=== PATIENT | male | born 1955 | race African-American/Black ===

== ENCOUNTER 2022-04-21 18:12 | Inpatient (IN) | payer OTHER ==
[~2022-04-21] VITALS: Ht 180.3 cm; Wt 86.2 kg
[2022-04-21 19:27] LABS: BASOPHILS % 0.7 % (0.0-1.0); EOSINOPHILS # (AUTO) 0.1 (0.0-0.4); EOSINOPHILS % 1.7 % (0.0-6.0); HEMATOCRIT 44.9 % (38.2-49.6); HEMOGLOBIN 14.4 g/dL (14.0-18.0); LYMPHOCYTES # (AUTO) 1.7 (1.0-3.2); LYMPHOCYTES % 30.4 % (18.0-39.1); MEAN CORPUSCULAR HEMOGLOBIN 27.1 pg (28-32); MEAN CORPUSCULAR HGB CONC 32.1 g/dL (31-35); MEAN CORPUSCULAR VOLUME 84.4 fL (81-99); MONOCYTES # (AUTO) 0.5 (0.2-0.8); MONOCYTES % 8.3 % (4.4-11.3); NEUTROPHILS # (AUTO) 3.2 (2.1-6.9); NEUTROPHILS % 58.5 % (38.7-80.0); PLATELET COUNT 174 x10e3/uL (140-360); RED BLOOD COUNT 5.32 x10e6/uL (4.3-5.7); RED CELL DISTRIBUTION WIDTH 12.9 % (11.7-14.4)
[2022-04-21 19:39] LABS: INR 1.01; PROTHROMBIN TIME 14.2 seconds (11.9-14.5)
[2022-04-21 19:40] LABS: PARTIAL THROMBOPLASTIN TIME 34.9 seconds (23.8-35.5)
[2022-04-21 19:47] LABS: ALBUMIN 4.4 g/dL (3.5-5.0); ALBUMIN/GLOBULIN RATIO 1.2 (0.8-2.0); ANION GAP 15.1 mmol/L (8-16); CALCIUM 9.8 mg/dL (8.4-10.2); CREATININE, SERUM 1.37 mg/dL (0.72-1.25); POTASSIUM 4.1 mmol/L (3.5-5.1)
[2022-04-21] MEDS ORDERED: IOPAMIDOL 370 MG/ML 100 ML INFUS..BTL INJ ONE (20:26)
[2022-04-21] MEDS ORDERED: SODIUM CHLORIDE 0.9% 100 ML ONE (20:26)
[2022-04-21] MEDS ORDERED: SODIUM CHLORIDE 0.9% 1000ML 1,000 ML IV ONE (20:30)
[2022-04-21] MEDS ORDERED: ONDANSETRON HCL INJ 2MG/ML 2ML 2 MG/ML VIAL IV STA (21:33)
[2022-04-21] MEDS ORDERED: Morphine 4mg INJECTION 4 MG/ML INJ IV ONE (21:45)
[2022-04-21] MEDS: METRONIDAZOLE 500MG/NS 100ML 100 ML IV SCH (22:10)
[2022-04-21 23:10] VITALS: BP 162/93
[2022-04-21 23:35] VITALS: BP 162/93
[2022-04-21 23:40] VITALS: BP 162/93
[2022-04-22] VITALS (9 sets, daily range): BP systolic 114–162; BP diastolic 61–93
[2022-04-22] MEDS ORDERED: LINZESS145 MCG PO (00:09)
[2022-04-22] MEDS ORDERED: OMEPRAZOLE40 MG PO (00:09)
[2022-04-22] MEDS ORDERED: AMLODIPINE BESY10 MG PO (00:09)
[2022-04-22] MEDS ORDERED: LOSARTAN POTASS50 MG PO (00:09)
[2022-04-22] MEDS ORDERED: PROCTOSOL-HC28.35 GM TOP (00:09)
[2022-04-22] MEDS: SODIUM CHLORIDE 0.9% 1000ML 1,000 ML IV SCH ×4 (01:55→21:56)
[2022-04-22] MEDS: METRONIDAZOLE 500MG/NS 100ML 100 ML IV SCH ×3 (05:39→17:09)
[2022-04-22 06:28] LABS: HEMATOCRIT 38.1 % (38.2-49.6); HEMOGLOBIN 12.8 g/dL (14.0-18.0)
[2022-04-22] MEDS ORDERED: ACETAMINOPHEN 325 MG TAB PO PRN (08:30)
[2022-04-22] MEDS ORDERED: ONDANSETRON HCL INJ 2MG/ML 2ML 2 MG/ML VIAL IV PRN (08:30)
[2022-04-22] MEDS ORDERED: PANTOPRAZOLE SOD 40 MG TABEC PO SCH (09:00)
[2022-04-22] MEDS: SENNOSIDES 8.6 MG TAB PO SCH ×2 (09:40→21:56)
[2022-04-22] MEDS: DOCUSATE SODIUM 100 MG CAP PO SCH ×2 (09:40→16:53)
[2022-04-22] MEDS: AMLODIPINE BESYLATE 10 MG TAB PO SCH (09:40)
[2022-04-22 12:15] LABS: HEMATOCRIT 40.3 % (38.2-49.6); HEMOGLOBIN 13.1 g/dL (14.0-18.0)
[2022-04-22] MEDS ORDERED: PEG (High)/E-LYTE SOLN 4,000 ML BTL PO ONE (14:00)
[2022-04-22 17:44] LABS: HEMATOCRIT 43.7 % (38.2-49.6); HEMOGLOBIN 14.6 g/dL (14.0-18.0)
[2022-04-22] MEDS ORDERED: BISACODYL 5 MG TAB EC PO ONE ×3 (22:30→23:30)
[2022-04-23] VITALS (8 sets, daily range): BP systolic 98–134; BP diastolic 65–86
[2022-04-23 04:40] LABS: HEMATOCRIT 48.1 % (38.2-49.6); HEMOGLOBIN 15.6 g/dL (14.0-18.0)
[2022-04-23] MEDS: METRONIDAZOLE 500MG/NS 100ML 100 ML IV SCH ×5 (06:33→23:11)
[2022-04-23] MEDS: SODIUM CHLORIDE 0.9% 1000ML 1,000 ML IV SCH ×3 (06:33→22:00)
[2022-04-23] MEDS: SENNOSIDES 8.6 MG TAB PO SCH ×2 (09:00→20:12)
[2022-04-23] MEDS: DOCUSATE SODIUM 100 MG CAP PO SCH ×2 (09:00→16:59)
[2022-04-23] MEDS: AMLODIPINE BESYLATE 10 MG TAB PO SCH (09:00)
[2022-04-23] MEDS: TAMSULOSIN HCL 0.4 MG CAP PO SCH ×2 (10:45→20:12)
[2022-04-23 14:18] LABS: HEMATOCRIT 41.5 % (38.2-49.6); HEMOGLOBIN 14.1 g/dL (14.0-18.0)
[2022-04-23] MEDS ORDERED: DEXMEDETOMIDINE HCL 2 ML ONE (16:45)
[2022-04-23] MEDS: HYDROCORTISONE ACETATE 25 MG/SUPP.RECT SUPP RC SCH (17:05)
[2022-04-23 18:57] LABS: HEMATOCRIT 41.1 % (38.2-49.6); HEMOGLOBIN 13.9 g/dL (14.0-18.0)
[2022-04-23] MEDS ORDERED: HYOSCYAMINE SULFATE 0.5 MG/ML INJ ONE (19:03)
[2022-04-23] MEDS ORDERED: PROPOFOL IV EMULSION 10 MG/ML 20 ML VIAL ONE (19:03)
[2022-04-23] MEDS ORDERED: EPINEPHRINE HCL 1:1000 1ML 1 MG/ML AMP ONE (19:03)
[2022-04-24] VITALS: BP 114/70
[2022-04-24 04:00] VITALS: BP 100/53
[2022-04-24] MEDS: METRONIDAZOLE 500MG/NS 100ML 100 ML IV SCH (06:22)
[2022-04-24] MEDS ORDERED: SODIUM CHLORIDE 0.9% 1000ML 1,000 ML IV SCH (08:00)
[2022-04-24 08:10] VITALS: BP 112/69
[2022-04-24] MEDS ORDERED: METRONIDAZOLE500 MG PO (08:40)
[2022-04-24] MEDS ORDERED: FLOMAX0.4 MG PO (08:40)
[2022-04-24] MEDS ORDERED: Docusate Sodium PO (08:40)
[2022-04-24 09:07] VITALS: BP 112/69
[2022-04-24] MEDS: SENNOSIDES 8.6 MG TAB PO SCH (10:31)
[2022-04-24] MEDS: TAMSULOSIN HCL 0.4 MG CAP PO SCH (10:32)
[2022-04-24] MEDS: AMLODIPINE BESYLATE 10 MG TAB PO SCH (10:32)
[2022-04-24] MEDS: DOCUSATE SODIUM 100 MG CAP PO SCH (10:32)
[2022-04-24] MEDS: HYDROCORTISONE ACETATE 25 MG/SUPP.RECT SUPP RC SCH (10:33)
== END 2022-04-24 11:07 | disposition home or self-care (01) | DRG 394 ==
LOC: ER 18:22 → ERHOLD 21:46 → INTOOBSV 21:46 → MED/SURG 23:05 → OBSVTOIN 04-24 09:03
PROVIDERS: ADMIT Internal Medicine; ATTEND Internal Medicine
PROC: 0DBP8ZX Excision of Rectum, Via Natural or Artificial Opening Endoscopic, Diagnostic (ICD-10-PCS; 2022-04-23)
PROC: 0DBK8ZX Excision of Ascending Colon, Via Natural or Artificial Opening Endoscopic, Diagnostic (ICD-10-PCS; principal; 2022-04-23 15:20)
PROC: 0DBM8ZX Excision of Descending Colon, Via Natural or Artificial Opening Endoscopic, Diagnostic (ICD-10-PCS; 2022-04-23 15:20)
DX: K63.5 Polyp of colon (principal); N17.9 Acute kidney failure, unspecified; K64.8 Other hemorrhoids; K62.89 Other specified diseases of anus and rectum; N40.0 Benign prostatic hyperplasia without lower urinary tract symptoms; K21.9 Gastro-esophageal reflux disease without esophagitis; K60.2 Anal fissure, unspecified; N40.1 Benign prostatic hyperplasia with lower urinary tract symptoms; R35.0 Frequency of micturition; R35.1 Nocturia; Z20.822 Contact with and (suspected) exposure to COVID-19
CPT/HCPCS: 36415; 45378; 45385; 74174; 80053; 85014; 85018; 85025; 85610; 85730; 86850; 86900; 88305; 96361; 99284; G0378; J0171; J1980; J2270; J2405; J2543; J7030; J7050; Q9967